=== PATIENT | female | born 1990 | race Caucasian/White ===

== ENCOUNTER 2024-08-08 22:04 | Emergency (ER) | payer OTHER ==
[~2024-08-08] VITALS: Ht 157.5 cm; Wt 68.0 kg
[2024-08-08] MEDS ORDERED: IBLOOD GLUCOSE TEST STRIP 1 EA TEST XX ONE (23:15)
[2024-08-08] MEDS ORDERED: LACTATED RINGER'S 1,000 ML IV ONE (23:45)
[2024-08-08 23:50] LABS: BASOPHILS 0.5 % (0-2); EOSINOPHILS 2.7 % (0-6); HEMATOCRIT 39.1 % (35.0-50.0); LYMPHOCYTES 11.4 % (24-44); MCH 26.3 (27-36); MCHC 33.3 g/dl (30-36); MCV 79.1 fl (81-99); MONOCYTES 7.8 % (0-12); NEUTROPHILS 77.6 % (39-80); PLATELET COUNT 316 K/uL (140-440); RBC 4.94 M/ul (4.3-5.7); RDW 13.5 (10.5-15.0)
[2024-08-09 00:08] LABS: ALKALINE PHOSPHATASE 98 U/L (46-116); ALT (SGPT) 45 U/L (14-59); ANION GAP 12.7 (7-21); AST (SGOT) 19 U/L (15-37); BILIRUBIN, TOTAL 0.2 mg/dL (0.2-1.0); BUN/CREATININE RATIO 16.25 (6.0-28.6); CALCIUM 8.8 mg/dL (8.5-10.1); CARBON DIOXIDE 26 mmol/L (21-32); CHLORIDE 102 mmol/L (98-107); GLOMERULAR FILTRATION RATE,EST 99 mL/min (>60); MAGNESIUM 2.3 mg/dL (1.8-2.4); POTASSIUM 3.7 mmol/L (3.5-5.1); UREA NITROGEN 13 mg/dL (7-18)
[2024-08-09 00:53] LABS: BILIRUBIN, URINE NEGATIVE (negative); BLOOD/HGB, URINE NEGATIVE (Negative); KETONE, URINE NEGATIVE (Negative); LEUK ESTERASE, URINE NEGATIVE (negative); NITRITE, URINE NEGATIVE (negative); PH, URINE 6.5 (5-7)
[2024-08-09 01:06] LABS: AMPHETAMINES, URINE NEGATIVE (NEGATIVE); BARBITURATES, URINE NEGATIVE (NEGATIVE); BENZODIAZEPINE, URINE NEGATIVE (NEGATIVE); BUPRENORPHINE, URINE NEGATIVE (NEGATIVE); COCAINE, URINE NEGATIVE (NEGATIVE); ECSTASY, URINE NEGATIVE (NEGATIVE); FENTANYL, URINE NEGATIVE (NEGATIVE); METHADONE, URINE NEGATIVE (NEGATIVE); OPIATES, URINE NEGATIVE (NEGATIVE); OXYCODONE, URINE NEGATIVE (NEGATIVE); PHENCYCLIDINE, URINE NEGATIVE (NEGATIVE)
[2024-08-09 01:09] LABS: CANNABINOID, URINE NEGATIVE (NEGATIVE)
[2024-08-09 01:18] VITALS: BP 101/54
--- NOTE | 2024-08-09 15:57 | EKG ---
[facility] [address] [facility] [place] [address] Signed Normal sinus rhythm Normal ECG No previous ECGs available Confirmed by Rebecca Price MD () on 08/09/2024 3:56:42 PM Electronically Signed By: REBECCA PRICE MD 08/09/24 1557 PATIENT NAME: NORMA HOFF Electrocardiogram DATE OF : 89 PHYSICIAN: REBECCA PRICE MD REPORT #: [id number] REPORT IS CONFIDENTIAL AND NOT TO BE RELEASED WITHOUT AUTHORIZATION
== END 2024-08-09 01:20 | disposition home or self-care (01) ==
LOC: ED 22:04
PROVIDERS: Internal Medicine
DX: R55 Syncope and collapse (principal); J45.909 Unspecified asthma, uncomplicated; G43.909 Migraine, unspecified, not intractable, without status migrainosus; Z88.8 Allergy status to other drugs, medicaments and biological substances; Z79.51 Long term (current) use of inhaled steroids; Z79.899 Other long term (current) drug therapy
CPT/HCPCS: 36415; 80053; 80307; 81003; 83735; 84443; 84484; 84703; 85025; 93005; 93010; 96360; 99284-25; J7121